=== PATIENT | female | born 1975 | race Caucasian/White ===

== ENCOUNTER 2019-01-04 10:02 | Emergency (ER) | payer MEDICAID, OTHER ==
[~2019-01-04] VITALS: Ht 160 cm; Wt 45.0 kg
[~2019-01-04 10:02] MED LIST: CYCL10TA7 PO; FERR27TA PO; FLUO20CA6; HYDR-4011 PO; MED4DP PO; NAPR-985 PO; TRAZ-111; [UNRECOGNIZED DRUG - CODE] PO
[2019-01-04 10:06] VITALS: BP 141/68; PULSE 57; RESP 18; Ht 160 cm; Wt 45.0 kg
[2019-01-04] MEDS ORDERED: KETOROLAC 60 MG INJ IM STA (11:12)
[2019-01-04] MEDS ORDERED: DEXAMETHASONE 10 MG/ML 1 ML INJ IM ONE (11:30)
[2019-01-04] MEDS ORDERED: DIAZEPAM 5 MG TAB PO ONE (11:30)
== END 2019-01-04 12:03 | disposition home or self-care (01) ==
LOC: FTE 10:02
DX: M62.830 Muscle spasm of back (principal)
CPT/HCPCS: 71045; 81025; 96372; J1100; J1885; Z7502; Z7610